=== PATIENT | male | born 1945 | race Caucasian/White ===

== ENCOUNTER 2016-12-30 11:52 | Observation (INO) | payer OTHER ==
[~2016-12-30] VITALS: Ht 170.2 cm; Wt 130.0 kg
[~2016-12-30 11:52] MED LIST: ADULT LOW DOSE81 M1 PO; ANTIVERT25 MG PO; BENICAR20 MG PO; COLBENEMID1 TABLET PO; CRESTOR10 MG PO; KEFLEX500 MG PO
[2016-12-30 13:02] LABS: HEMATOCRIT 44.7 % (38.0-50.0); MCH 32.3 PG (29.0-34.0); MCHC 33.8 G/DL (30.0-36.0); MCV 95.5 FL (86-99); PLATELET COUNT 199 K/uL (156-360); RBC DIS.WIDTH-CV 12.5 % (11.8-14.6); RBC DIS.WIDTH-SD 43.9 % (39-53); RED BLOOD COUNT 4.68 M/uL (4.00-5.50); WHITE BLOOD COUNT 4.9 K/uL (4.1-10.2)
[2016-12-30 13:11] LABS: CHLORIDE 103 mEq/L (99-109); POTASSIUM 4.2 mEq/L (3.7-5.4)
[2016-12-30 13:12] LABS: SODIUM 141 mEq/L (136-147)
[2016-12-30 13:13] LABS: GLUCOSE 110 mg/dL (70-99)
[2016-12-30 13:15] LABS: ANION GAP 9 MEQ/L (2-14)
[2016-12-30 13:17] LABS: GFR ESTIMATE (CALCULATED) > 59 mL/min/
[2016-12-30 13:18] LABS: UREA NITROGEN (BUN) 20 mg/dL (9-23)
[2016-12-30 13:22] LABS: TROP-I INTERPRETATION NEGATIVE; TROPONIN-I 0.01 ng/mL (0.0-0.30)
[2016-12-30 15:03] LABS: PROTHROMBIN TIME 11.4 SEC (10.2-12.9)
[2016-12-30] MEDS ORDERED: CYANOCOBALAM1000 MCG PO (15:31)
[2016-12-30] MEDS ORDERED: FENOFIBRIC ACI135 MG PO (15:31)
[2016-12-30] MEDS ORDERED: COZAAR50 MG PO (15:31)
[2016-12-30] MEDS ORDERED: [UNRECOGNIZED DRUG - CODE] PO (15:31)
[2016-12-30 19:17] VITALS: BP 157/80
[2016-12-30 20:36] LABS: TROP-I INTERPRETATION NEGATIVE; TROPONIN-I 0.02 ng/mL (0.0-0.30)
[2016-12-31 00:10] VITALS: BP 129/75
[2016-12-31 03:01] LABS: TROP-I INTERPRETATION NEGATIVE; TROPONIN-I 0.02 ng/mL (0.0-0.30)
[2016-12-31 07:19] VITALS: BP 125/73
[2016-12-31 09:36] LABS: ADD MIUA? NO; BILIRUBIN NEGATIVE; BLOOD NEGATIVE; COLOR YELLOW ((YELLOW)); GLUCOSE (STRIP) NEGATIVE; KETONES NEGATIVE; LEUKOCYTES NEGATIVE; NITRITE NEGATIVE; PROTEIN (STRIP) NEGATIVE; SPECIFIC GRAVITY 1.015 (1.000-1.030); UROBILINOGEN 0.2 MG/DL (0.2-1.0)
[2016-12-31 11:12] VITALS: BP 123/72
[2016-12-31] MEDS ORDERED: XARELTO20 MG PO (11:21)
[2016-12-31] MEDS ORDERED: LOPRESSOR25 MG PO (11:21)
== END 2016-12-31 15:06 | disposition home or self-care (01) ==
LOC: EME 11:52 → EDOF 15:01 → 4EAST 15:01 → CANRESERV 15:16 → ENRESERV 15:16 → 4EAST 16:13 → ENPENDDIS 12-31 13:52 → 4EAST 12-31 15:06
PROVIDERS: Emergency Medicine; Internal Medicine; Physician Assistant
DX: I48.92 Unspecified atrial flutter (principal); R55 Syncope and collapse; I10 Essential (primary) hypertension; E78.5 Hyperlipidemia, unspecified; Z87.891 Personal history of nicotine dependence; M10.9 Gout, unspecified; Z82.49 Family history of ischemic heart disease and other diseases of the circulatory system; Z83.3 Family history of diabetes mellitus; E66.9 Obesity, unspecified; Z68.42 Body mass index [BMI] 45.0-49.9, adult
CPT/HCPCS: 70450; 71010; 80048; 81003; 84443; 84443 GA; 84484; 85027; 85610; 93005; 93306; 99281; 99285; G0378; J1650